=== PATIENT | male | born 1970 | race Caucasian/White ===

== ENCOUNTER 2017-12-01 18:11 | Inpatient (IN) | payer MEDICARE, MEDICAID ==
[~2017-12-01] VITALS: Ht 147.3 cm; Wt 78.5 kg
--- NOTE | 2017-12-01 18:20 | NUR ---
BIB [facility] c/o weakness and hypoglycemia, BS 47 in field, NAD noted, VSS, resp even and unlabored, pt was put on monitor, at bs.
[2017-12-01 18:39] LABS: BASOPHILS # (AUTO) 0.1 /CMM (0.0-0.2); EOSINOPHILS % (AUTO) 0.4 % (0.0-6.0); HEMATOCRIT 39 % (39-51); HEMOGLOBIN 13.1 g/dL (13.5-17.5); LYMPHOCYTES # (AUTO) 2.4 /CMM (0.8-4.8); LYMPHOCYTES % (AUTO) 28.2 % (20.0-44.0); MEAN CORPUSCULAR HEMOGLOBIN 35 PG (26.0-33.0); MEAN CORPUSCULAR HGB CONC 34 g/dl (31.0-36.0); MEAN CORPUSCULAR VOLUME 103 fL (80-96); MONOCYTES # (AUTO) 0.4 /CMM (0.1-1.30); MONOCYTES % (AUTO) 5.2 % (2.0-12.0); NEUTROPHILS # (AUTO) 5.5 /CMM (1.8-8.9); NEUTROPHILS % (AUTO) 65.2 % (43.0-81.0); PLATELET COUNT (AUTO) 308 /CMM (150-450); RDW COEFFICIENT OF VARIATION 14.4 (11.5-15.0); RED BLOOD CELL COUNT(AUTO) 3.72 MIL/uL (4.5-6.0); WHITE BLOOD COUNT (AUTO) 8.4 K/uL (4.3-11.0)
[2017-12-01 18:55] LABS: ALBUMIN 3.1 g/dL (3.4-5.0); BILIRUBIN,DIRECT 0.1 mg/dL (0.0-0.2); BILIRUBIN,TOTAL 0.4 mg/dL (0.2-1.0); CREATININE 0.9 mg/dL (0.6-1.3); POTASSIUM 3.7 mmol/L (3.5-5.1); TOTAL PROTEIN, SERUM 6.3 g/dL (6.4-8.2)
--- NOTE | 2017-12-01 19:03 | NUR ---
urine sent to the lab
[2017-12-01 19:08] LABS: APPEARANCE,URINE Clear (CLEAR); BILIRUBIN,URINE Negative (NEGATIVE); BLOOD, URINE Negative Ery/uL (NEGATIVE); COLOR,URINE Yellow (YELLOW); KETONES,URINE Negative (NEGATIVE); LEUKOCYTE ESTERASE ,URINE Trace (NEGATIVE); NITRITE, URINE Negative (NEGATIVE); PH,URINE 6.5 (5.0-8.0); PROTEIN,URINE Negative (NEGATIVE); UGLUCOSE Negative (NEGATIVE); UROBILINOGEN,URINE 0.2 EU/dL (0.2)
--- NOTE | 2017-12-01 19:14 | NUR ---
RECEIVED REPORT FROM CHANDU VIEYRA FOR ALISHA. NO S/S OF DISTRESS NOTED. WILL CONTINUE TO MONITOR PT.
--- NOTE | 2017-12-01 19:30 | NUR ---
DR JOSHUA VELARDE FOR PANEL ADMISSION
[2017-12-01 19:32] LABS: BACTERIA,URINE Rare /HPF (None Seen); MUCUS,URINE Few /LPF (None Seen); RBC,URINE NONE SEEN /HPF (0-2); SQUAMOUS EPITHELIAL CELL,UR Rare /HPF (None Seen); WBC,URINE 2-4/HPF /HPF (0-3)
--- NOTE | 2017-12-01 19:54 | NUR ---
PATIENT ASSIGNED TELE [id number]
--- NOTE | 2017-12-01 20:01 | NUR ---
REPORT GIVEN TO HYPNOTHERAPISTCHANDU MONTANEZ FOR ALISHA
--- NOTE | 2017-12-01 20:02 | NUR ---
PT IS AAOX1. PER SISTER, PT IS A KNOWN DIABETIC. MD MADE AWARE
[2017-12-01] MEDS ORDERED: INSU100V10 SQ (20:08)
[2017-12-01] MEDS ORDERED: METF10004 PO (20:09)
[2017-12-01] MEDS ORDERED: SIMV40TA5 PO (20:09)
[2017-12-01] MEDS ORDERED: SERT100T PO (20:09)
[2017-12-01] MEDS ORDERED: FOLI1TAB16 PO (20:09)
[2017-12-01] MEDS ORDERED: ARIP10TA9 PO (20:09)
[2017-12-01] MEDS ORDERED: GLIP10TA11 PO (20:09)
[2017-12-01] MEDS ORDERED: IV NS 0.9% 1,000 ML IV PRN (20:59)
[2017-12-01 21:00] VITALS: BP 98/52
[2017-12-01] MEDS ORDERED: Z GUARD REMEDY 2 OZ OINT TP PRN (21:00)
[2017-12-01] MEDS ORDERED: MAG HYDROX/AL HYDROX/SIMETH 30 ML UDC PO PRN (21:00)
[2017-12-01] MEDS ORDERED: MAGNESIUM HYDROXIDE 30 ML UDC PO PRN (21:00)
[2017-12-01] MEDS ORDERED: *INSULIN REGULAR(HUMULIN R)HUM 100 UNIT/ML VIAL SQ PRN (21:00)
[2017-12-01] MEDS ORDERED: CEFTRIAXONE 1 G in IV D5W 50 ML IV SCH (21:00)
[2017-12-01] MEDS ORDERED: DEXTROSE 50%-WATER 50 ML DISP.SYRIN IV PRN (21:00)
[2017-12-01] MEDS ORDERED: ONDANSETRON HCL/PF 4 MG/2 ML VIAL IVP PRN (21:00)
[2017-12-01] MEDS ORDERED: ACETAMINOPHEN 325 MG TABLET PO PRN (21:00)
--- NOTE | 2017-12-01 21:00 | NUR ---
RN NOTES RECEIVED PT. FROM ER WITH DX. OF HYPOGLYCEMIA, A/OX1, SISTER AT BEDSIDE, PT. HAS DOWN SYNDROME, ADMISSION INSTRUCTION WAS GIVEN, CALL LIGHT WITHIN REACH, SIDERAILSUPX2, CONTINUE TO MONITOR
[2017-12-01] MEDS: ENOXAPARIN SODIUM 40 MG/0.4 ML DISP.SYRIN SQ SCH (21:32)
[2017-12-01] MEDS: BLOOD SUGAR DIAGNOSTIC 1 EACH STRIP VI SCH (21:43)
--- NOTE | 2017-12-01 22:20 | NUR ---
RN NOTES CALLED DR LEWIS AND INFORMED HIM THAT PT IS ALLERGIC TO PCN AND HE ORDERED ROCEPHIN IVPB. DR. LEWIS DISCONTINUED THE ROCEPHIN, ORDER NOTED AND CARRIED OUT
[2017-12-02] MEDS ORDERED: IV D5/ 0.9% NACL 1,000 ML IV ONE (00:30)
[2017-12-02] MEDS ORDERED: LEVOFLOXACIN 500 MG /D5W 100ML 100 ML IV ONE (01:24)
[2017-12-02] MEDS: LEVOFLOXACIN 500 MG /D5W 100ML 500 MG in PREMIX 1 EA IV SCH (01:32)
[2017-12-02 06:26] LABS: BASOPHILS % (AUTO) 0.5 % (0.0-2.0); EOSINOPHILS % (AUTO) 1.1 % (0.0-6.0); HEMATOCRIT 40 % (39-51); HEMOGLOBIN 13.3 g/dL (13.5-17.5); LYMPHOCYTES # (AUTO) 2.2 /CMM (0.8-4.8); LYMPHOCYTES % (AUTO) 41.1 % (20.0-44.0); MEAN CORPUSCULAR HEMOGLOBIN 36 PG (26.0-33.0); MEAN CORPUSCULAR HGB CONC 34 g/dl (31.0-36.0); MEAN CORPUSCULAR VOLUME 107 fL (80-96); MONOCYTES # (AUTO) 0.4 /CMM (0.1-1.30); MONOCYTES % (AUTO) 7.6 % (2.0-12.0); NEUTROPHILS # (AUTO) 2.6 /CMM (1.8-8.9); NEUTROPHILS % (AUTO) 49.7 % (43.0-81.0); PLATELET COUNT (AUTO) 291 /CMM (150-450); RDW COEFFICIENT OF VARIATION 15.8 (11.5-15.0); RED BLOOD CELL COUNT(AUTO) 3.72 MIL/uL (4.5-6.0); WHITE BLOOD COUNT (AUTO) 5.3 K/uL (4.3-11.0)
[2017-12-02 06:35] LABS: CREATININE 0.9 mg/dL (0.6-1.3); PHOSPHORUS 2.8 mg/dL (2.5-4.9); POTASSIUM 3.5 mmol/L (3.5-5.1)
--- NOTE | 2017-12-02 06:40 | NUR ---
RN NOTES AWAKE, SISTER AT BEDSIDE, IV LINE PATENT NO REDNESS OR SWOLLEN, PT. NEEDS ATTENDED
[2017-12-02] MEDS: BLOOD SUGAR DIAGNOSTIC 1 EACH STRIP VI SCH ×4 (07:11→21:59)
--- NOTE | 2017-12-02 07:20 | NUR ---
MS RN INITIAL NOTES Received patient asleep on low Sabillon's position with intact and patent peripheral IV @ R wrist G#20 with D5NS infusing well @ 75ml/hr to consumed X1L. Incontinent both bladder and bowel. Latest blood sugar 117mg/dl. With sister at bedside. Kept clean, dry and comfortable. Will monitor accordingly.
[2017-12-02 08:00] VITALS: BP 98/56
[2017-12-02] MEDS: ARIPIPRAZOLE 5 MG TABLET PO SCH (08:25)
[2017-12-02] MEDS: SERTRALINE HCL 50 MG TABLET PO SCH (08:25)
[2017-12-02] MEDS: FOLIC ACID 1 MG TABLET PO SCH (08:25)
--- NOTE | 2017-12-02 09:00 | NUR ---
MS RN NOTES Food served consumed with good appetite. Due meds given, tolerated well by the patient. Kept call light at bedside.
[2017-12-02] MEDS: INSULIN REGULAR, HUMAN 100 UNIT/ML 3 ML VIAL SQ PRN ×2 (13:21→17:36)
[2017-12-02 16:00] VITALS: BP 106/66
[2017-12-02] MEDS ORDERED: SIMVASTATIN 40 MG TABLET PO SCH (18:00)
--- NOTE | 2017-12-02 18:46 | NUR ---
MS RN CLOSING NOTES Patient A/O x1, with down syndrome, sitting on bed. With patent right wrist SL G#20. On accu check Q6H to closely monitor blood sugar, last result was 135, 2units insulin given as ordered. Noted blood sodium level improved - 136. Incontinent both bowel and bladder, ambulatory with toilet privilege. Afebrile, no new unusualities noted. Kept clean, dry and comfortable. Endorse to the next shift.
--- NOTE | 2017-12-02 19:10 | NUR ---
RN OPENING NOTES PT AWAKE AND ALERT TO SELF. PT HAS DOWN SYNDROME. FAMILY AT BEDSIDE. NO APPARENT S/S OF PAIN, DISTRESS OR SOB AT THIS TIME. PT HAS A RIGHT WRIST #20 INTACT AND PATENT. SAFETY PRECAUTIONS IN PLACE, BED IN LOWEST LOCKED POSITION, X2 SIDE RAILS UP, AND CALL LIGHT WITHIN REACH. WILL CONTINUE TO MONITOR.
[2017-12-02 20:20] VITALS: BP 133/77
[2017-12-02] MEDS: ENOXAPARIN SODIUM 40 MG/0.4 ML DISP.SYRIN SQ SCH (21:59)
[2017-12-03] MEDS: LEVOFLOXACIN 500 MG /D5W 100ML 500 MG in PREMIX 1 EA IV SCH (01:05)
[2017-12-03] MEDS: BLOOD SUGAR DIAGNOSTIC 1 EACH STRIP VI SCH (06:38)
--- NOTE | 2017-12-03 06:45 | NUR ---
RN CLOSING NOTES PT AWAKE AND ALERT TO SELF. PT HAS DOWN SYNDROME. FAMILY AT BEDSIDE. NO APPARENT S/S OF PAIN, DISTRESS OR SOB OVERNIGHT. PT HAS A RIGHT WRIST #20 INTACT AND PATENT. SAFETY PRECAUTIONS IN PLACE, BED IN LOWEST LOCKED POSITION, X2 SIDE RAILS UP, AND CALL LIGHT WITHIN REACH. WILL ENDORSE TO DAY SHIFT NURSE FOR CONTINUITY OF CARE.
--- NOTE | 2017-12-03 07:48 | NUR ---
MS RN OPENING NOTES RECEIVED PT SITTING UPRIGHT IN BED WITH SISTER AT BEDSIDE. PT IS A/O X1, AFEBRILE. RESPIRATIONS ARE EVEN AND UNLABORED, NOT IN ANY ACUTE DISTRESS NOTED. NO FACIAL GRIMACING OR MOANING NOTED. IV SITE TO RIGHT WRIST INTACT, NO INFILTRATION NOTED. DRESSING KEPT CLEAN AND DRY. SAFETY MEASURES ARE IN PLACE. CALL LIGHT IS LEFT WITHIN REACH. WILL CONTINUE TO MONITOR THROUGHOUT SHIFT FOR CONTINUITY OF CARE.
[2017-12-03 08:00] VITALS: BP 101/68
[2017-12-03 08:19] VITALS: BP 101/64
[2017-12-03] MEDS: ARIPIPRAZOLE 5 MG TABLET PO SCH (08:33)
[2017-12-03] MEDS: FOLIC ACID 1 MG TABLET PO SCH (08:33)
[2017-12-03] MEDS: SERTRALINE HCL 50 MG TABLET PO SCH (08:33)
--- NOTE | 2017-12-03 11:45 | NUR ---
MS HADOOP ADMIN NOTE PT DISCHARGE TO HOME WITH FAMILY VIA PERSONAL VEHICLE IN STABLE CONDITION. EXPLAINED DISCHARGE PAPERWORK TO PT AND SISTER AT BEDSIDE WITH VERBAL AND WRITTEN AGREEMENT. PT IS A/O X1, AFEBRILE. RESPIRATIONS ARE EVEN AND UNLABORED, NOT IN ANY ACUTE DISTRESS NOTED. NO FACIAL GRIMACING OR MOANING NOTED. PUPILS ARE REACTIVE TO LIGHT. BILATERAL HAND JAVA WEB USER INTERFACE DEVELOPER ARE STRONG AND EQUAL. ABDOMEN IS SOFT AND NONDISTENDED. NO C/O BLADDER DISCOMFORT. NO SKIN ISSUES NOTED. IV SITE REMOVED, APPLIED PRESSURE AND TOLERATED WELL. ID BAND REMOVED. FAMILY ASSISTED PT TO CHANGE TO OWN CLOTHES. ACCOMPANIED PT WITH 1 STAFF VIA WHEELCHAIR TO PERSONAL VEHICLE. ALL BELONGINGS TAKEN WITH PT. PT LEFT IN STABLE CONDITION.
== END 2017-12-03 11:41 | disposition home or self-care (01) | DRG 638 ==
LOC: ER 18:13 → TELE 20:41 → MED 12-02 02:10
PROVIDERS: ADMIT Internal Medicine; ATTEND Internal Medicine
DX: E11.649 Type 2 diabetes mellitus with hypoglycemia without coma (principal); N39.0 Urinary tract infection, site not specified; E87.1 Hypo-osmolality and hyponatremia; E44.0 Moderate protein-calorie malnutrition; G92 Toxic encephalopathy; E86.0 Dehydration; F32.9 Major depressive disorder, single episode, unspecified; Q90.9 Down syndrome, unspecified; T38.3X5A Adverse effect of insulin and oral hypoglycemic [antidiabetic] drugs, initial encounter; Y92.009 Unspecified place in unspecified non-institutional (private) residence as the place of occurrence of the external cause; E88.81 Metabolic syndrome and other insulin resistance; E78.5 Hyperlipidemia, unspecified; E86.1 Hypovolemia; F41.9 Anxiety disorder, unspecified; E66.01 Morbid (severe) obesity due to excess calories; Z68.36 Body mass index [BMI] 36.0-36.9, adult; E88.09 Other disorders of plasma-protein metabolism, not elsewhere classified; Z71.3 Dietary counseling and surveillance; Z79.84 Long term (current) use of oral hypoglycemic drugs
CPT/HCPCS: 36415; 71045-TC; 80048-TC; 80076-TC; 81000-TC; 82962-TC; 83690-TC; 83735-TC; 84100-TC; 85025-TC; 87081-TC; 87086-TC; A4216; A4606; J0696; J1650; J1815; J1956; J7030; J7042; J7050; J7060; Z7610

== ENCOUNTER 2019-10-30 19:55 | Inpatient (IN) | payer MEDICARE, OTHER ==
[~2019-10-30] VITALS: Ht 149.9 cm; Wt 74.8 kg
[~2019-10-30 19:55] MED LIST: ARIP10TA9 PO; FOLI1TAB16 PO; INSU100V10 SQ; METF-442 PO; SERT100T PO; SIMV-49 PO
[2019-10-30] MEDS ORDERED: ONDANSETRON HCL/PF 4 MG/2 ML VIAL IVP PRN (20:30)
[2019-10-30] MEDS ORDERED: Z GUARD REMEDY 2 OZ OINT TP PRN (20:30)
[2019-10-30] MEDS ORDERED: HYDROCODONE/APAP 5/325MG 1 EACH TABLET PO PRN (20:30)
[2019-10-30] MEDS ORDERED: ZOLPIDEM TARTRATE 5 MG TABLET PO PRN (20:30)
[2019-10-30] MEDS ORDERED: ACETAMINOPHEN 325 MG TABLET PO PRN (20:30)
[2019-10-30] MEDS ORDERED: LORAZEPAM INJ 2 MG/ML VIAL IV PRN (20:30)
[2019-10-30 22:30] VITALS: BP 101/59
--- NOTE | 2019-10-30 22:30 | NUR ---
SECURITY PROGRAM MANAGER NOTES PATIENT ARRIVED ON FLOOR AT 2230 WITH SISTER AND EMT. PT IS NONVERBAL, UNABLE TO ASSESS ALERT. RECEIVED HISTORY FROM SISTER. BREATHING EVEN AND UNLABORED ON ROOM AIR. SHOWS NO SIGNS OF ACUTE RESPIRATORY DISTRESS, NO ACUTE PAIN. TELE MONITOR SR. IV ON R WRIST 20G RUNNING NS AT 75ML/HR. SHOWS NO SIGNS OF INFILTRATION, NO REDNESS. SAFETY PRECAUTIONS IN PLACE. BED IN LOWEST POSITION, LOCKED, AND CALL LIGHT KEPT WITHIN REACH. WILL CONTINUE TO MONITOR.
[2019-10-30] MEDS ORDERED: CEFTRIAXONE 1 G VIAL ONE (23:26)
[2019-10-30] MEDS: IV NS 0.9% 1,000 ML IV PRN (23:29)
[2019-10-30] MEDS: CEFTRIAXONE 1 G in IV D5W 50 ML IV SCH (23:30)
[2019-10-31] MEDS ORDERED: BENA40TA8 PO (01:04)
[2019-10-31] MEDS ORDERED: ALBUT2 CONTNEB (01:13)
[2019-10-31] MEDS ORDERED: SULF1TAB48 PO (01:55)
[2019-10-31] MEDS ORDERED: TAMS-12 PO (01:56)
[2019-10-31] MEDS ORDERED: DEXTROSE 50%-WATER 50 ML DISP.SYRIN IV PRN (02:00)
--- NOTE | 2019-10-31 03:40 | NUR ---
BEHAVIORAL THERAPIST NOTES VTE SCORE OF 3. WILL CONTACT FOR DVT PUMP AND FOR ORDER OF LOVENOX.
--- NOTE | 2019-10-31 04:52 | NUR ---
BIOMASS PLANT MANAGER NOTES PATIENT PULLING IV LINES AND TELE MONITOR BOX. RECEIVED ORDER MD FOR BILATERAL SOFT WRIST RESTRAINTS. APPLIED AND WILL CONTINUE TO MONITOR FOR SKIN ASSESSMENT AND CIRCULATION.
--- NOTE | 2019-10-31 06:29 | NUR ---
RN NOTES: PER HOSPITALIST JUNITO DAVID, NO CHEMICAL PROPHYLAXIS AT THIS TIME DUE TO VERONIKA AND FALL RISK.
[2019-10-31] MEDS: INSULIN REGULAR, HUMAN 100 UNIT/ML 3 ML VIAL SQ PRN ×3 (06:31→22:14)
[2019-10-31] MEDS: BLOOD SUGAR DIAGNOSTIC 1 EACH STRIP IN SCH ×4 (06:35→22:12)
--- NOTE | 2019-10-31 06:37 | NUR ---
LIST OF FIRST JOB IDEAS NOTES PT IS NONVERBAL, ALERT AND ORIENTED X 0, ABLE TO FOLLOW SIMPLE DIRECTIONS. BREATHING EVEN AND UNLABORED ON ROOM AIR. SHOWS NO SIGNS OF ACUTE RESPIRATORY DISTRESS, NO ACUTE PAIN. TELE MONITOR SR. IV ON R WRIST 22G RUNNING NS AT 125ML/HR. SHOWS NO SIGNS OF INFILTRATION, NO REDNESS. BILATERAL SOFT WRIST RESTRAINTS ON, SHOWS NO S/S OF POOR CIRCULATION, NO SKIN TEARS. SAFETY PRECAUTIONS IN PLACE. BED IN LOWEST POSITION, LOCKED, AND CALL LIGHT KEPT WITHIN REACH. WILL ENDORSE TO ONCOMING NURSE.
--- NOTE | 2019-10-31 07:10 | NUR ---
RN OPENING NOTES RECEIVED PATIENT IN BED RESTING,AWAKE AND ALERT, ABLE TO FOLLOW SIMPLE DIRECTIONS. BREATHING EVEN AND UNLABORED ON ROOM AIR. NOT IN ANY FORM OF DISTRESS. NO S/S OF PAIN OR DISCOMFORT AT THIS TIME. TELE MONITOR SR 62. IV ON R WRIST 22G RUNNING NS AT 125ML/HR. SHOWS NO SIGNS OF INFILTRATION, NO REDNESS. BILATERAL SOFT WRIST RESTRAINTS ON PATIENT PULLING IV LINES, SHOWS NO S/S OF POOR CIRCULATION, NO SKIN TEARS. SAFETY PRECAUTIONS IN PLACE. BED IN LOWEST POSITION, LOCKED, AND CALL LIGHT KEPT WITHIN REACH. BED ALARM ON. WILL CONT TO MONIOTR ACCORDINGLY
[2019-10-31 08:00] VITALS: BP 106/66
[2019-10-31] MEDS ORDERED: ARIP15TA8 MT (08:04)
[2019-10-31 08:42] LABS: BASOPHILS % (AUTO) 0.6 % (0.0-2.0); EOSINOPHILS % (AUTO) 0.8 % (0.0-6.0); HEMATOCRIT 34 % (39-51); HEMOGLOBIN 11.7 g/dL (13.5-17.5); LYMPHOCYTES # (AUTO) 2.5 /CMM (0.8-4.8); LYMPHOCYTES % (AUTO) 33.6 % (20.0-44.0); MEAN CORPUSCULAR HGB CONC 34 g/dl (31.0-36.0); MEAN CORPUSCULAR VOLUME 105 fL (80-96); MONOCYTES # (AUTO) 0.5 /CMM (0.1-1.30); MONOCYTES % (AUTO) 6.8 % (2.0-12.0); NEUTROPHILS # (AUTO) 4.4 /CMM (1.8-8.9); NEUTROPHILS % (AUTO) 58.2 % (43.0-81.0); PLATELET COUNT (AUTO) 234 /CMM (150-450); RED BLOOD CELL COUNT(AUTO) 3.24 MIL/uL (4.5-6.0); WHITE BLOOD COUNT (AUTO) 7.6 K/uL (4.3-11.0)
[2019-10-31 08:49] LABS: CALCIUM, SERUM 8.1 mg/dL (8.5-10.1); CREATININE 0.9 mg/dL (0.6-1.3); MAGNESIUM 1.9 mg/dL (1.8-2.4); PHOSPHORUS 2.3 mg/dL (2.5-4.9); POTASSIUM 3.7 mmol/L (3.5-5.1)
[2019-10-31] MEDS: PANTOPRAZOLE 40 MG TABLET.DR PO SCH (09:20)
[2019-10-31] MEDS ORDERED: K PHOS NEUTRAL 250 MG TABLET PO ONE (10:30)
[2019-10-31] MEDS: IV NS 0.9% 1,000 ML IV PRN (13:25)
[2019-10-31 16:00] VITALS: BP 106/68
[2019-10-31 19:30] VITALS: BP 104/63
[2019-10-31] MEDS ORDERED: FEE PK DOSING 1 MIN EA MC ONE (19:32)
--- NOTE | 2019-10-31 19:47 | NUR ---
MS RN NOTES PT IS NONVERBAL, ALERT AND ORIENTED X 0, ABLE TO FOLLOW SIMPLE DIRECTIONS. BREATHING EVEN AND UNLABORED ON ROOM AIR. SHOWS NO SIGNS OF ACUTE RESPIRATORY DISTRESS, NO ACUTE PAIN. IV ON R WRIST 22G RUNNING NS AT 125ML/HR. SHOWS NO SIGNS OF INFILTRATION, NO REDNESS. BILATERAL SOFT WRIST RESTRAINTS ON, SHOWS NO S/S OF POOR CIRCULATION, NO SKIN TEARS. SAFETY PRECAUTIONS IN PLACE. BED IN LOWEST POSITION, LOCKED, AND CALL LIGHT KEPT WITHIN REACH. WILL CONTINUE TO MONITOR.
[2019-10-31 20:00] VITALS: BP 104/63
[2019-10-31] MEDS: VANCOMYCIN 1 GM in IV D5W 250 ML IV SCH (20:32)
[2019-10-31] MEDS: CEFTRIAXONE 1 G in IV D5W 50 ML IV SCH (21:59)
[2019-11-01] MEDS: IV NS 0.9% 1,000 ML IV PRN ×2 (03:31→17:19)
[2019-11-01] MEDS: BLOOD SUGAR DIAGNOSTIC 1 EACH STRIP IN SCH ×4 (06:39→22:48)
--- NOTE | 2019-11-01 06:41 | NUR ---
MS RN NOTES PT IS NONVERBAL, ALERT AND ORIENTED X 0, ABLE TO FOLLOW SIMPLE DIRECTIONS. BREATHING EVEN AND UNLABORED ON ROOM AIR. SHOWS NO SIGNS OF ACUTE RESPIRATORY DISTRESS, NO ACUTE PAIN. IV ON R WRIST 22G RUNNING NS AT 125ML/HR. SHOWS NO SIGNS OF INFILTRATION, NO REDNESS. BILATERAL SOFT WRIST RESTRAINTS ON, SHOWS NO S/S OF POOR CIRCULATION, NO SKIN TEARS. ALL DUE MEDICATIONS GIVEN. SAFETY PRECAUTIONS IN PLACE. BED IN LOWEST POSITION, LOCKED, AND CALL LIGHT KEPT WITHIN REACH. WILL ENDORSE TO ONCOMING NURSE.
--- NOTE | 2019-11-01 07:30 | NUR ---
RN OPENING NOTES RECEIVED PATIENT IN BED RESTING,AWAKE AND ALERT, ABLE TO FOLLOW SIMPLE DIRECTIONS. BREATHING EVEN AND UNLABORED ON ROOM AIR. NOT IN ANY FORM OF DISTRESS. NO S/S OF PAIN OR DISCOMFORT AT THIS TIME. IV ACCESS INTACT AND PATENT RUNNING NS AT 125ML/HR. SHOWS NO SIGNS OF INFILTRATION, NO REDNESS. BILATERAL SOFT WRIST RESTRAINTS ON PATIENT PULLING IV LINES, SHOWS NO S/S OF POOR CIRCULATION, NO SKIN TEARS. SAFETY PRECAUTIONS IN PLACE. BED IN LOWEST POSITION, LOCKED, AND CALL LIGHT KEPT WITHIN REACH. BED ALARM ON. WILL CONT TO MONIOTR ACCORDINGLY
[2019-11-01 08:00] VITALS: BP 112/72
[2019-11-01 08:18] LABS: CALCIUM, SERUM 8.4 mg/dL (8.5-10.1); CREATININE 0.7 mg/dL (0.6-1.3); POTASSIUM 3.5 mmol/L (3.5-5.1)
[2019-11-01 08:23] LABS: BASOPHILS # (AUTO) 0.1 /CMM (0.0-0.2); BASOPHILS % (AUTO) 1.1 % (0.0-2.0); EOSINOPHILS % (AUTO) 1.9 % (0.0-6.0); HEMATOCRIT 39 % (39-51); LYMPHOCYTES # (AUTO) 2.2 /CMM (0.8-4.8); MEAN CORPUSCULAR HGB CONC 33 g/dl (31.0-36.0); MEAN CORPUSCULAR VOLUME 106 fL (80-96); MONOCYTES # (AUTO) 0.4 /CMM (0.1-1.30); MONOCYTES % (AUTO) 7.5 % (2.0-12.0); NEUTROPHILS # (AUTO) 2.5 /CMM (1.8-8.9); NEUTROPHILS % (AUTO) 47.5 % (43.0-81.0); PLATELET COUNT (AUTO) 253 /CMM (150-450); RED BLOOD CELL COUNT(AUTO) 3.72 MIL/uL (4.5-6.0); WHITE BLOOD COUNT (AUTO) 5.3 K/uL (4.3-11.0)
[2019-11-01] MEDS: PANTOPRAZOLE 40 MG TABLET.DR PO SCH (09:21)
[2019-11-01] MEDS: VANCOMYCIN 1 GM in IV D5W 250 ML IV SCH ×2 (09:22→20:15)
--- NOTE | 2019-11-01 12:10 | NUR ---
RN NOTES notified Dr Matt for medrecon. per , "OK".
[2019-11-01] MEDS: INSULIN REGULAR, HUMAN 100 UNIT/ML 3 ML VIAL SQ PRN ×2 (12:58→21:42)
[2019-11-01 14:13] LABS: APPEARANCE,URINE CLEAR (CLEAR); BILIRUBIN,URINE NEGATIVE (NEGATIVE); BLOOD, URINE NEGATIVE Ery/uL (NEGATIVE); COLOR,URINE YELLOW (YELLOW); KETONES,URINE NEGATIVE (NEGATIVE); LEUKOCYTE ESTERASE ,URINE NEGATIVE (NEGATIVE); NITRITE, URINE NEGATIVE (NEGATIVE); PROTEIN,URINE NEGATIVE (NEGATIVE); UGLUCOSE NEGATIVE (NEGATIVE); UROBILINOGEN,URINE 0.2 EU/dL (0.2)
[2019-11-01 16:00] VITALS: BP 112/72
--- NOTE | 2019-11-01 19:15 | NUR ---
RN NOTES Received patient on bed, on RA. No s/sx of discomfort noted at this time. With bilateral soft wrist restraints, patient noted pulling IV lines and getting out of bed. Kept on bed clean, dry and comfortable. Call light within easy reach. Will continue to monitor accordingly.
--- NOTE | 2019-11-01 19:37 | NUR ---
RN CLOSING NOTES PATIENT IN STABLE CONDITION. ALL NEEDS ATTENDED AND PROVIDED. ALL DUE MEDS GIVEN ORDERED. ASSISTED WITH ADLS. KEPT PATIENT SAFE AND COMFORTABLE. BED IN LOW/LOCKED POSITION, SIDERAILS UPX 2. CALL LIGHT IN REACH. ENDORSED ACCORDINGLY.
[2019-11-01 20:00] VITALS: BP 116/60
--- NOTE | 2019-11-01 20:00 | NUR ---
RN NOTES Patient noted soiled with stool. Bed bath done with good perineal care. Patient tolerated the procedure well. Beddings changed accordingly. Patient noted participating in turning and repositioning.
[2019-11-01] MEDS: CEFTRIAXONE 1 G in IV D5W 50 ML IV SCH (21:27)
[2019-11-02] MEDS: IV NS 0.9% 1,000 ML IV PRN ×2 (02:48→15:43)
--- NOTE | 2019-11-02 06:42 | NUR ---
RN CLOSING NOTES Pt asleep on bed. With bilateral soft wrist restraints as ordered, pt noted pulling IV line. All nursing needs attended, due meds given as ordered. Afebrile the whole shift, no new unusualities noted. Kept on bed clean, dry and comfortable. Endorsed.
[2019-11-02 06:57] LABS: CALCIUM, SERUM 8.7 mg/dL (8.5-10.1); CREATININE 0.9 mg/dL (0.6-1.3); POTASSIUM 3.8 mmol/L (3.5-5.1)
[2019-11-02] MEDS: BLOOD SUGAR DIAGNOSTIC 1 EACH STRIP IN SCH ×4 (06:58→21:14)
--- NOTE | 2019-11-02 07:30 | NUR ---
MS CHANDU Tello Notes Patient is in bed awake and alert, mumble words. No signs of distress and no signs of shortness of breath in room air. Bilateral restraints are on with capillary refill less than 3 seconds. IV R wrist #22G intact and patent infusing NS at 125 mls/hr. Safety measures are applied with bed in the lowest position side rails up x 2 for safety and Addendum: 11/02/19 at 0934 by ALCIRA SCOTT RN Call light within reach. Will continue to monitor.
[2019-11-02 08:00] VITALS: BP 114/69
[2019-11-02] MEDS: PANTOPRAZOLE 40 MG TABLET.DR PO SCH (08:34)
[2019-11-02] MEDS: VANCOMYCIN 1 GM in IV D5W 250 ML IV SCH ×2 (08:34→20:41)
[2019-11-02] MEDS: INSULIN REGULAR, HUMAN 100 UNIT/ML 3 ML VIAL SQ PRN ×3 (12:20→21:22)
[2019-11-02 16:00] VITALS: BP 118/70
--- NOTE | 2019-11-02 18:30 | NUR ---
RN CLOSE NOTES PATIENT IS IN BED A/O X 1 CALM AND COOPERATIVE. NO SIGNS OF DISTRESS AND NO SHORTNESS OF BREATH. IV R WRIST #22G INTACT AND PATENT INFUSING NS AT 125 ML/HR. RESTRAINTS ON BILATERAL WRISTS WITH CAPILLARY REFILL LESS THAN 3 SECONDS. SCHEDULED MEDICATIONS WERE GIVEN. ATE 75% OF DINNER. SAFETY MEASURE ARE APPLIED BED IS IN LOW POSITION WITH SIDE RAILS UP X 2 FOR SAFETY. CALL LIGHT WITHIN REACH. WILL ENDORSE TO THE NEXT SHIFT.
--- NOTE | 2019-11-02 19:33 | NUR ---
MS RN RECEIVE PT IN BED A/O X 1, BILATERAL SOFT WRIST, STABLE, NO S/S OF DISTRESS, SAFETY MEASURES AT ALL TIMES. WILL CONT TO MONITOR
[2019-11-02 20:00] VITALS: BP 121/62
[2019-11-02 20:15] VITALS: BP 121/62
[2019-11-02] MEDS: CEFTRIAXONE 1 G in IV D5W 50 ML IV SCH (21:39)
[2019-11-03] MEDS: IV NS 0.9% 1,000 ML IV PRN (01:05)
--- NOTE | 2019-11-03 05:35 | NUR ---
MS RN NO SIGNIFICANT CHANGES, STABLE AND NOT IN DISTRESS, SLEPT WELL, KEPT CLEAN, DRY AND COMFORT AT ALL TIMES. ALL NEEDS ATTENDED AND ANTICIPATED, ASSISTED REPOSITION EVERY 2 HOURS. SAFETY MEASURES AT ALL TIMES. WILL ENDORSE TO NEXT SHIFT
[2019-11-03] MEDS: INSULIN REGULAR, HUMAN 100 UNIT/ML 3 ML VIAL SQ PRN ×2 (06:31→12:07)
[2019-11-03] MEDS: BLOOD SUGAR DIAGNOSTIC 1 EACH STRIP IN SCH ×2 (06:31→12:06)
[2019-11-03 06:42] LABS: CREATININE 0.8 mg/dL (0.6-1.3); POTASSIUM 3.4 mmol/L (3.5-5.1)
--- NOTE | 2019-11-03 07:15 | NUR ---
RN NOTES PATIENT IN BED EYES CLOSED, AWAKEN EASILY, RESPOND TO VERBAL AND TACTILE STIMULI. NO ACUTE DISTRESS NOTED. BREATHING UNLABORED. NO SOB NOTED. IV ACCESS PATENT AND INTACT. NO REDNESS, NO SWELLING NOTED. SAFETY MEASURES IN PLACE. CALL LIGHT WITHIN REACH. WILL CONTINUE TO MONITOR ACCORDINGLY.
[2019-11-03] MEDS: PANTOPRAZOLE 40 MG TABLET.DR PO SCH (07:57)
[2019-11-03] MEDS: VANCOMYCIN 1 GM in IV D5W 250 ML IV SCH (07:57)
--- NOTE | 2019-11-03 08:45 | NUR ---
RN NOTES TRANSFER OF CARE , REPORT GIVEN TO ILENE SCHOFIELD. PATIENT ALERT ORIENTED X 1 . NO ACUTE DISTRESS NOTED. BREATHING UNLABORED. NO SOB NOTED. IV ACCESS PATENT AND INTACT. NO REDNESS, NO SWELLING NOTED. SAFETY MEASURES IN PLACE. CALL LIGHT WITHIN REACH.
[2019-11-03 09:14] VITALS: BP 102/63
[2019-11-03] MEDS ORDERED: VANC1FRO2 IV (11:07)
[2019-11-03] MEDS ORDERED: POTASSIUM CHLORIDE 20 MEQ TAB.PRT.SR PO SCH (12:30)
--- NOTE | 2019-11-03 13:30 | NUR ---
MICROBIOLOGY REPORTS RECEIVED FROM [facility] AND RELAYED TO [facility]ENTURA BRYANT OF INFECTIOUS DISEASE. CONTACT LENS FITTER,NILSA MCCLELLAN.
--- NOTE | 2019-11-03 16:30 | NUR ---
DISCHARGED PT HOME WITH STABLE V/S.WITH ASSISTED HOME HEALTH FOLLOW UP. PICKED UP BY HER SISTER,ILENE. IV H/L REMOVED RT WRIST WITHOUT BLEEDING NOTED. DISCHARGE INSTRUCTIONS GIVEN TO THE SISTER. PT WAS VERY DELIGHTED TO GO HOME.
== END 2019-11-03 16:30 | disposition home health service (06) | DRG 871 ==
LOC: MED 22:29 → TELE 22:44 → MED 10-31 11:14
PROVIDERS: ADMIT Nurse Practitioner Acute Care; ATTEND Internal Medicine
DX: A41.9 Sepsis, unspecified organism (principal); N17.0 Acute kidney failure with tubular necrosis; G93.41 Metabolic encephalopathy; J18.9 Pneumonia, unspecified organism; N39.0 Urinary tract infection, site not specified; E44.0 Moderate protein-calorie malnutrition; B96.89 Other specified bacterial agents as the cause of diseases classified elsewhere; E66.9 Obesity, unspecified; F32.9 Major depressive disorder, single episode, unspecified; D53.9 Nutritional anemia, unspecified; F41.9 Anxiety disorder, unspecified; Q90.9 Down syndrome, unspecified; E78.5 Hyperlipidemia, unspecified; E11.65 Type 2 diabetes mellitus with hyperglycemia; Z68.33 Body mass index [BMI] 33.0-33.9, adult; Z79.4 Long term (current) use of insulin; Z79.84 Long term (current) use of oral hypoglycemic drugs
CPT/HCPCS: 36415; 71045-TC; 80048-TC; 80202-TC; 81000-TC; 82962-TC; 83735-TC; 84100-TC; 85025-TC; 87040-TC; 87081-TC; 87086-TC; G0378; J0696; J1815; J3370; J7030; J7060; U0003-CS